=== PATIENT | male | born 1965 | race Caucasian/White ===

== ENCOUNTER 2024-03-29 08:21 | Inpatient (IN) ==
--- NOTE | 2024-03-29 08:17 | Emergency Department Note ---
Impression & Plan Stroke, Right sided weakness, HTN (hypertension), benign ED Provider Note Name: [id number] Age: 58 Sex: Male Arrives Via: Ambulance Informant: Patient, EMS ED Provider: Gary Campoverde MD Chief Complaint: Right-sided weakness Impression: As per impressions above Medical Decision Makin-year-old gentleman arrives for evaluation of strokelike symptoms. Patient with a history of tobacco use no other past medical history. Symptoms were noted when he woke at 4 AM having had no symptoms at 1 in the morning. On examination he has significant weakness and ataxia of the right arm with some paresthesias of the arm and leg as well. No facial weakness or other concerning findings. He was emergently taken to CT and CT of the head neck angios were obtained. During this neurology was also consulted who evaluated patient via telemedicine. After their evaluation they feel that patient should be given baby aspirin and brought in for further workup. They advised against full load of aspirin/Plavix at this time until MRI was obtained. Throughout patient's stay blood pressure started trending down some having been quite elevated initially. Patient stable throughout. Patient arrives essentially 4 and half hours after waking up. He is not a TNKase candidate. There is no large embolic finding on CTA thus he is not a candidate for attempted intervention. Triage/Nursing Notes reviewed by Me Differential:Stroke, seizure, TIA, electrolyte imbalance, intracranial hemorrhage, mass effect, many other pathologies considered Vital Signs: reviewed and remarkable for hypertension Interventions: Aspirin 81 mg p.o. Labs:ED labs Reviewed by me and remarkable for no significant abnormalities Imaging:CT of the head without contrast as per my informal interpretation reveals questionable old infarct of the right anterior cerebellum. There is no acute intracranial hemorrhage or mass effect appreciated. Radiology feels there is no evidence of acute stroke or other concerning findings. CT of the head and neck with angiography as per radiologist no acute findings. EKG:As per my interpretation. Indication strokelike symptoms. Sinus tachycardia 111 bpm and a QTc of 456. There is no ectopy nor ischemia. There are no previous EKGs for comparison. Cardiac/Tele Monitoring: Cardiac Monitoring: An Order was placed for continuous cardiac monitoring. The monitor shows a rate of 80 with a normal sinus rhythm. Consults:Discussed with telemetry stroke neurologist Dr. Dinh who evaluated the patient and feels further stroke workup indicated but at this time would only give baby aspirin until further determination Discussed with Hospitalist who will bring in for further workup and evaluation Plan: Disposition:Hospitalization. Condition: Good History of Present Illness: 58-year-old gentleman who awoke at 4 AM this morning noting weakness of the right arm and leg. Unable to ambulate due to the right leg weakness. Unable to use his right arm properly. States he can lift it but it does not seem to be working properly. Associated with some mild paresthesias in the right arm and leg. He denies any headache, neck pain, visual changes. He has no difficulty speaking. Denies any falls, trauma, injuries. Notes he went to bed around 1 AM and then woke about 4 AM to go to the bathroom. He was hoping symptoms would resolve and do not improving he called 911. Denies any alcohol or drug use other than he does smoke marijuana regularly. He also smokes cigarettes. His mother had a history of stroke. Patient has no significant past medical history. No interventions by EMS. Patient was reportedly hypertensive for EMS. Past Medical History: Cigarette smoking, marijuana smoking Home Medications: No daily medications Allergies: No known drug allergies Vitals:Blood Pressure: 167/112, Pulse 89, RR 24, T 36.7C, O2 97% on RA Physical Exam: GENERAL: Patient is mildly anxious appearing and in minimal distress. RESPIRATORY: No dyspnea. Clear to auscultation and equal bilaterally. CARDIOVASCULAR: Regular rate and rhythm.No murmur appreciated. GASTROINTESTINAL: Abdomen soft, non-tender, no peritonitis. EXTREMITIES: Normal motion all extremities, no cyanosis, no edema. NEUROLOGIC: Awake alert oriented. Cranial nerves intact. Patient with 5 out of 5 strength and full sensation of left arm left leg. He has 4-5 strength right arm and right leg. He is ataxic with the right hand. He has decreased perceived sensation of the right arm and somewhat on the right anterior thigh. No visual issue appreciated. SKIN: No rash, no jaundice, no diaphoresis. PSYCH: Appropriate GCS: 15 ED Course: Times/Reassessments: 8:[address] scanner. 8:[address] scan of head no large bleed question infarct anterior right cerebellum 8:29 AM requested Ruthann neurostroke discussion. 8:34 AM. [facility] neuro responded via phone. Discussed findings and patient is outside the TNKase window however they will evaluate given degree of deficits and rapid assess for further intervention. 8:36 AM. Patient reevaluated. Continues to have weakness ataxia of the right arm and leg. Denies other symptoms at this time. Blood pressure is 200/120. Patient is unlikely TNKase candidate thus will not proceed with antihypertensives immediately. 8:45 AM. Blood pressure 162/108 8:51 AM Stroke neurologist has evaluated the patient. Suggest giving a baby aspirin at this time and awaiting further workup prior to further loading 8:[address] reads are available and do not show any intracranial hemorrhage or occlusive disease per radiologist Gary Campoverde MD Past Med/Surg History Problem List (Updated 03/29/24 @ 15:28 by Gary Campoverde MD) Stroke (Acute) COPD (chronic obstructive pulmonary disease) HTN (hypertension), benign (Acute) Tobacco abuse Right sided weakness (Acute) Family History Mother Stroke Social History Smoking Status: Current every day smoker Feels Safe at Home: Yes Allergies Allergies Allergy/AdvReac Type Severity Reaction Status Date / Time strawberry Allergy Severe Hives Unverified 03/29/24 09:54 Home Meds Home Medications Medication Instructions Recorded Confirmed No Known Home Medications 03/29/24 03/29/24 Results & Data (ED) Vital Signs Vital Signs - 24 hr 03/29/24 08:35 03/29/24 08:45 03/29/24 09:04 Temperature 36.7 C Temperature Source Temporal Artery Scan Pulse Rate 114 H 102 H 102 H Pulse Rate [Apical] Respiratory Rate 16 20 Respiratory Effort / Characteristics Non-Labored Spontaneous Respiratory Depth Normal Blood Pressure 204/126 H 162/108 H Blood Pressure [Right Arm] Blood Pressure Mean 152 126 Blood Pressure Mean [Right Arm] Pulse Oximetry 95 96 Oxygen Delivery Method Room Air Room Air Sepsis Recent Fever Within 48 Hours No Sepsis New/Unexplained Change in Mental Status N/A Sepsis Action Taken by Nursing No Action Required 03/29/24 09:15 Temperature Temperature Source Pulse Rate Pulse Rate [Apical] 87 Respiratory Rate 18 Respiratory Effort / Characteristics Non-Labored Respiratory Depth Normal Blood Pressure Blood Pressure [Right Arm] 153/99 H Blood Pressure Mean Blood Pressure Mean [Right Arm] 117 Pulse Oximetry 97 Oxygen Delivery Method Room Air Sepsis Recent Fever Within 48 Hours Sepsis New/Unexplained Change in Mental Status Sepsis Action Taken by Nursing Laboratory Data 03/29/24 08:27 03/29/24 08:27 Lab Results 03/29/24 03/29/24 Range/Units 08:27 08:40 WBC 10.64 (4.8-10.8) K/ul RBC 5.83 (4.70-6.10) M/uL Hgb 17.5 (14.0-18.0) g/dl Hct 51.1 (42.0-52.0) % MCV 87.7 (80.0-100.0) fL MCH 30.0 (25.0-34.0) pg MCHC 34.2 (32.0-36.0) g/dL RDW Std Deviation 46.4 H (36.4-46.3) fL RDW Coeff of Court 14.5 (11.5-14.5) % Plt Count 303 (130-400) K/uL MPV 8.6 L (9.4-12.4) fL Immature Gran % (Auto) 0.5 % Neut % (Auto) 73.5 % Lymph % (Auto) 18.0 % Howard % (Auto) 6.6 % Eos % (Auto) 0.8 % Baso % (Auto) 0.6 % Neut # (Auto) 7.83 H (1.40-6.50) K/uL Lymph # (Auto) 1.91 (1.20-3.40) K/uL Howard # (Auto) 0.70 H (0.11-0.59) K/uL Eos # (Auto) 0.09 (0.00-0.50) K/uL Baso # (Auto) 0.06 (0.00-0.20) K/uL Immature Gran # (Auto) 0.05 (0.01-0.20) K/uL PT 10.3 (9.0-12.0) Seconds INR 0.9 (0.9-1.1) APTT 27 (21-31) Seconds PTT Ratio 1.0 Sodium 138 (136-145) mmol/L Potassium 3.8 (3.5-5.1) mmol/L Chloride 104 (98-107) mmol/L Carbon Dioxide 26 (21-32) mmol/L Anion Gap 8 (3-11) BUN 7 (6-23) mg/dl Creatinine 0.94 (0.6-1.4) mg/dl Est Cr Clr Drug Dosing 77.3 ml/min eGFR 93.97 BUN/Creatinine Ratio 7.4 L (10-20) Glucose 130 H (70-99(Fasting)) mg/dl Calcium 9.7 (8.6-10.3) mg/dl Magnesium 2.0 (1.7-2.4) mg/dl Total Bilirubin 0.5 (0.2-1.0) mg/dl AST 14 (13-39) U/L ALT 12 (7-52) U/L Alkaline Phosphatase 67 (34-104) U/L Troponin I High Sens 4.1 (0-20) pg/ml Total Protein 7.7 (6.0-8.3) gm/dl Albumin 4.6 (3.4-5.0) gm/dl Globulin 3.1 (2.5-4.0) gm/dl Albumin/Globulin Ratio 1.5 (0.9-2) Blood Type A Positive Antibody Screen NEGATIVE Administered Medications Enoxaparin Sodium (Enoxaparin Inj 40 Mg/0.4 Ml Syr) 40 mg SQ Q24H [facility] Stop: 04/28/24 13:59 Last Admin: 03/29/24 14:25 Dose: 40 mg Documented By: WAGNER Discontinued Medications Aspirin (Aspirin 81 Mg Chew) 81 mg PO NOW STA Stop: 03/29/24 08:57 Last Admin: 03/29/24 09:05 Dose: 81 mg Documented By: LONA Ioversol (Optiray 320 125ml) 112 ml IV ONCE ONE Stop: 03/29/24 08:27 Last Admin: 03/29/24 08:27 Dose: 112 ml Documented By: CASTILLO Imaging Data Radiologist's Impression: Head CT 03/29/24 08:16 CT angio neck with con, CT angio head w con, CT head/brain wo con CLINICAL HISTORY: neuro deficit, acute stroke suspected TECHNIQUE: Contiguous axial CT images of the head were acquired from the base of the skull to the vertex without intravenous contrast administration. CT angiography of the head and neck was performed following intravenous administration of iodinated contrast. Coronal and sagittal MIPS were obtained from the axial data set and were submitted for review. Automated dose lowering techniques and/or adjustment according to patient size were utilized for this examination. All measurements were calculated based on NASCET criteria. CT DOSE: 1120.47 mGy.cm Comparison: None available at the time of this dictation. FINDINGS: CT head: There is no acute intracranial hemorrhage or evidence of acute territorial infarction. No shift of the midline structures, mass effect, or extra-axial abnormalities are shown. Biapical emphysema is seen. Prominent right thyroid nodule measuring 36 mm is noted. CTA Neck: A 3 vessel aortic arch is shown. There is no significant atherosclerotic plaque in the aortic arch or the origins of the innominate, left common carotid, and left subclavian arteries. The common carotid, external carotid, cervical segments of the internal carotid arteries, and the cervical segments of the vertebral arteries are patent without hemodynamically significant stenosis. The left vertebral artery is dominant. CTA Head: The anterior and posterior cerebral circulations are patent. No hemodynamically significant stenosis, aneurysm, dissection, or arteriovenous malformation is shown. IMPRESSION: 1. No acute intracranial hemorrhage, evidence of acute territorial infarction, or other acute intracranial disease process. 2. No occlusion, hemodynamically significant stenosis, or dissection in the major cervical arteries. 3. No occlusion, hemodynamically significant stenosis, aneurysm, dissection, or arteriovenous malformation in the major intracranial arteries. Assessment of stenosis of the internal carotid arteries is based on NASCET criteria. ACT 112: Negative or not required by law. Electronically signed by: Enzo Bird M.D. 03/29/2024 8:51 AM Head CTA 03/29/24 08:16 CT angio neck with con, CT angio head w con, CT head/brain wo con CLINICAL HISTORY: neuro deficit, acute stroke suspected TECHNIQUE: Contiguous axial CT images of the head were acquired from the base of the skull to the vertex without intravenous contrast administration. CT angiography of the head and neck was performed following intravenous administration of iodinated contrast. Coronal and sagittal MIPS were obtained from the axial data set and were submitted for review. Automated dose lowering techniques and/or adjustment according to patient size were utilized for this examination. All measurements were calculated based on NASCET criteria. CT DOSE: 1120.47 mGy.cm Comparison: None available at the time of this dictation. FINDINGS: CT head: There is no acute intracranial hemorrhage or evidence of acute territorial infarction. No shift of the midline structures, mass effect, or extra-axial abnormalities are shown. Biapical emphysema is seen. Prominent right thyroid nodule measuring 36 mm is noted. CTA Neck: A 3 vessel aortic arch is shown. There is no significant atherosclerotic plaque in the aortic arch or the origins of the innominate, left common carotid, and left subclavian arteries. The common carotid, external carotid, cervical segments of the internal carotid arteries, and the cervical segments of the vertebral arteries are patent without hemodynamically significant stenosis. The left vertebral artery is dominant. CTA Head: The anterior and posterior cerebral circulations are patent. No hemodynamically significant stenosis, aneurysm, dissection, or arteriovenous malformation is shown. IMPRESSION: 1. No acute intracranial hemorrhage, evidence of acute territorial infarction, or other acute intracranial disease process. 2. No occlusion, hemodynamically significant stenosis, or dissection in the major cervical arteries. 3. No occlusion, hemodynamically significant stenosis, aneurysm, dissection, or arteriovenous malformation in the major intracranial arteries. Assessment of stenosis of the internal carotid arteries is based on NASCET criteria. ACT 112: Negative or not required by law. Electronically signed by: Enzo Bird M.D. 03/29/2024 8:51 AM Neck CTA 03/29/24 08:16 CT angio neck with con, CT angio head w con, CT head/brain wo con CLINICAL HISTORY: neuro deficit, acute stroke suspected TECHNIQUE: Contiguous axial CT images of the head were acquired from the base of the skull to the vertex without intravenous contrast administration. CT angiography of the head and neck was performed following intravenous administration of iodinated contrast. Coronal and sagittal MIPS were obtained from the axial data set and were submitted for review. Automated dose lowering techniques and/or adjustment according to patient size were utilized for this examination. All measurements were calculated based on NASCET criteria. CT DOSE: 1120.47 mGy.cm Comparison: None available at the time of this dictation. FINDINGS: CT head: There is no acute intracranial hemorrhage or evidence of acute territorial infarction. No shift of the midline structures, mass effect, or extra-axial abnormalities are shown. Biapical emphysema is seen. Prominent right thyroid nodule measuring 36 mm is noted. CTA Neck: A 3 vessel aortic arch is shown. There is no significant atherosclerotic plaque in the aortic arch or the origins of the innominate, left common carotid, and left subclavian arteries. The common carotid, external carotid, cervical segments of the internal carotid arteries, and the cervical segments of the vertebral arteries are patent without hemodynamically significant stenosis. The left vertebral artery is dominant. CTA Head: The anterior and posterior cerebral circulations are patent. No hemodynamically significant stenosis, aneurysm, dissection, or arteriovenous malformation is shown. IMPRESSION: 1. No acute intracranial hemorrhage, evidence of acute territorial infarction, or other acute intracranial disease process. 2. No occlusion, hemodynamically significant stenosis, or dissection in the major cervical arteries. 3. No occlusion, hemodynamically significant stenosis, aneurysm, dissection, or arteriovenous malformation in the major intracranial arteries. Assessment of stenosis of the internal carotid arteries is based on NASCET criteria. ACT 112: Negative or not required by law. Electronically signed by: Enzo Bird M.D. 03/29/2024 8:51 AM Discharge Plan Visit Data Chief Complaint: Stroke Alert ED Provider: Gary Campoverde Discharge Problem: Stroke, Right sided weakness, HTN (hypertension), benign Discharge Instructions Interventions: ED Discharge Assessment Last Done: 03/29/24 12:49 Discharge Problem: Stroke Qualifiers: CVA mechanism: unspecified Qualified Code(s): I63.9 - Cerebral infarction, unspecified
[2024-03-29] MEDS: OPTIRAY 320 125ml IV ONE (08:27)
[2024-03-29 08:41] LABS: Basophils # (auto) 0.06 K/uL (0.00-0.20); Basophils % (auto) 0.6 %; Eosinophils # (auto) 0.09 K/uL (0.00-0.50); Eosinophils % (auto) 0.8 %; Hematocrit (blood only) 51.1 % (42.0-52.0); Hemoglobin 17.5 g/dl (14.0-18.0); Immature Granulocytes # (auto) 0.05 K/uL (0.01-0.20); Immature Granulocytes % (auto) 0.5 %; Lymphocytes # (auto) 1.91 K/uL (1.20-3.40); Mean Corpuscular Hgb Conc 34.2 g/dL (32.0-36.0); Mean Corpuscular Volume 87.7 fL (80.0-100.0); Mean Platelet Volume 8.6 fL (9.4-12.4); Monocytes % (auto) 6.6 %; Neutrophils # (auto) 7.83 K/uL (1.40-6.50); Neutrophils % (auto) 73.5 %; Platelet Count 303 K/uL (130-400); RDW Coefficient of Variation 14.5 % (11.5-14.5); RDW Standard Deviation 46.4 fL (36.4-46.3); Red Blood Count 5.83 M/uL (4.70-6.10); White Blood Count 10.64 K/ul (4.8-10.8)
--- NOTE | 2024-03-29 08:53 | CT Scan Report ---
CT angio neck with con, CT angio head w con, CT head/brain wo con CLINICAL HISTORY: neuro deficit, acute stroke suspected TECHNIQUE: Contiguous axial CT images of the head were acquired from the base of the skull to the nikky shashank without intravenous contrast administration. CT angiography of the head and neck was performed f ollowing intravenous administration of iodinated contrast. Coronal and sagittal MIPS were obtained fr om the axial data set and were submitted for review. Automated dose lowering techniques and/or adjus tment according to patient size were utilized for this examination. All measurements were calculated based on NASCET criteria. CT DOSE: 1120.47 mGy.cm Comparison: None available at the time of this dictation. FINDINGS: CT head: There is no acute intracranial hemorrhage or evidence of acute territorial infarction. No sh ift of the midline structures, mass effect, or extra-axial abnormalities are shown. Biapical emphysema is seen. Prominent right thyroid nodule measuring 36 mm is noted. CTA Neck: A 3 vessel aortic arch is shown. There is no significant atherosclerotic plaque in the aor tic arch or the origins of the innominate, left common carotid, and left subclavian arteries. The co mmon carotid, external carotid, cervical segments of the internal carotid arteries, and the cervical segments of the vertebral arteries are patent without hemodynamically significant stenosis. The left vertebral artery is dominant. CTA Head: The anterior and posterior cerebral circulations are patent. No hemodynamically significan t stenosis, aneurysm, dissection, or arteriovenous malformation is shown. IMPRESSION: 1. No acute intracranial hemorrhage, evidence of acute territorial infarction, or other acute intrac ranial disease process. 2. No occlusion, hemodynamically significant stenosis, or dissection in the major cervical arteries. 3. No occlusion, hemodynamically significant stenosis, aneurysm, dissection, or arteriovenous malfor mation in the major intracranial arteries. Assessment of stenosis of the internal carotid arteries is based on NASCET criteria. ACT 112: Negative or not required by law. Electronically signed by: Enzo Bird M.D. 03/29/2024 8:51 AM
[2024-03-29 08:57] LABS: Albumin Globulin Ratio 1.5 (0.9-2); Albumin Level 4.6 gm/dl (3.4-5.0); BUN Creatinine Ratio 7.4 (10-20); Bilirubin,Total 0.5 mg/dl (0.2-1.0); Calcium 9.7 mg/dl (8.6-10.3); Creatinine Clr Calc Pharmacy 77.3 ml/min; Globulin 3.1 gm/dl (2.5-4.0); Potassium 3.8 mmol/L (3.5-5.1); Total Protein 7.7 gm/dl (6.0-8.3)
[2024-03-29 09:03] LABS: Troponin I High Sensitivity 4.1 pg/ml (0-20)
[2024-03-29] MEDS: ASPIRIN 81 MG CHEW PO STA (09:05)
[2024-03-29 09:14] LABS: INR 0.9 (0.9-1.1); Partial Thromboplastin Time 27 Seconds (21-31); Prothrombin Time 10.3 Seconds (9.0-12.0)
--- NOTE | 2024-03-29 09:49 | History & Physical Report ---
Date of Service March 29, 2024 Assessment & Plan (1) Right sided weakness: (2) Tobacco abuse: (3) COPD (chronic obstructive pulmonary disease): (4) HTN (hypertension), benign: Plan 58-year-old male with PMHx HTN and tobacco use presenting to ED via EMS for right arm/hand and right leg sensation abnormalities. Noted that he started to experience weakness along the right side and has difficulty walking at 0400. CT, CTA head/neck WNL, EKG sinus tachycardia no ischemia. Patient continues to have sensation abnormalities along the right side with associated weakness on exam. Will complete workup to rule out CVA. #R-sided weakness Presenting w/ right sided upper and lower extremity weakness, with sensation abnormalities, last known well 0100, awoke with symptoms at 0400; current symptoms of ongoing right sided upper and lower extremity numbness with weakness, but patient feels as though it was resolving some. Did receive 81 mg aspirin in ED, no thrombolytics 2/2 outside of time-frame for such. Known history of HTN, not on medications because of side effects, per patient. Son reports history of MVP. - Admit med/tele - Telestroke recommending single dose of aspirin 81 mg and admission; ABCD2 5- BP, weakness, >60 min - Dysphagia screen x 1 - NPO until passed then heart healthy - CT head without acute hemorrhage or additional findings; CTA head/neck without acute findings or significant stenosis - 2D Echo Bubble pending; A1c pending; Lipids pending - Troponin 4.1; EKG sinus tachycardia, nonspecific T wave abnormality, rate around 110 bpm; no CP/SOB, some palpitations - Initiate DVT prevention therapy - lovenox; Start statin pending lipid results - Atorvastatin 40mg - ASA 81 mg given in ED- continue 81mg daily - MRI pending #Tobacco abuse/COPD Smokes cigarettes, approximately 1 pack/day times last 30 years. Previously was on Spiriva but has not seen a doctor in years and ran out. - Encouraged cessation - Nicotine patch and gum ordered -Order albuterol rescue inhaler as needed and recommend follow-up with PCP as an outpatient #HTN- initially hypertensive on arrival to ED, decreased. Not on medications to manage secondary to side effects, per patient. Will allow permissive hypertension; pending MRI results; Labetalol prn for SBP > 200 #MVP- ? h/o MVP, reported per son. Patient not symptomatic, will have occasional palpitations but not currently. Pending echo Message sent to nurse navigator to have patient set up with new PCP. Dispo: Admit to med/tele with likely discharge next day, pending workup + PT/OT eval VTE Prophylaxis: Lovenox This document was dictated utilizing [employer]. Please excuse any grammatical errors that may be secondary to use of this software. Admission and Anticipated Discharge Date Admission Date: 03/29/2024 History of Present Illness Chief Complaint: R sided weakness Primary Care Provider: NO PCP 58-year-old male with PMHx HTN and tobacco use presenting to ED via EMS for right arm/hand and right leg sensation abnormalities. Also noted that he sta rted to experience weakness along the right side and has difficulty walking. Initially went to bed feeling normal at 0100, patient then awoke again around 0400 to use the restroom and initially noticed that his right side arm and leg felt like they were asleep. Went back to sleep and a few minutes then awoke again and tried to go to the bathroom but felt that it was much more difficult to walk and he felt that the numbness/tingling/weakness was getting worse on the right side. Pt states that he woke his in bed because he was stumbling trying to get to the bathroom. Son, who is an EMT, reports that he did have slurred speech, but no other noticeable symptoms other than those patient describing. No history of TIA/CVA. Smokes around 1 pack/day for the past 30 years. Feels as though symptoms have improved slightly since being brought to the hospital, but he is still feeling numbness/tingling in his right arm and leg. CT head, CTA head/neck all revealing no acute abnormalities. EKG is sinus tachycardia, no signs of ischemia. Patient does not take any daily medications and has not seen his PCP in multiple years. Please see Dr. Roa's attestation for adjustments/additions to treatment plan. Allergies Allergy/AdvReac Type Severity Reaction Status Date / Time strawberry Allergy Severe Hives Unverified 03/29/24 09:54 Home Medications Medication Instructions Recorded Confirmed Type No Known Home Medications 03/29/24 03/29/24 History Past Med/Surg History Problem List (Updated 03/29/24 @ 11:55 by Leatha Roa MD) COPD (chronic obstructive pulmonary disease) HTN (hypertension), benign Tobacco abuse Right sided weakness Family History Mother Stroke Social History Smoking Status: Current every day smoker Feels Safe at Home: Yes Review of Systems Review of Systems: All systems reviewed & are unremarkable except as noted in Subjective Physical Exam Physical Exam: General: No acute distress Skin: Warm and dry, without rashes or lesions Head: Normocephalic, atraumatic Eyes: PERRL, conjunctivae clear, sclera slightly icteric; EOM intact ENT: External ear and ear canal without swelling; nose atraumatic; OK dentition, tongue normal appearance, oropharynx slightly dry Neck: Supple, no LAD Cardio: RRR,? systolic mumur, no additional murmurs/gallops/rubs; S1 and S2 n ormal Resp: No respiratory distress, Lungs CTA in all lobes bilaterally, no wheezes, rales, or rhonchi Abdomen: Soft, symmetric, nontender; No masses or hepatosplenomegaly; Bowel sounds normoactive MSK: No deformities, full ROM throughout; pulses palpable and equal; no edema. Neuro: II- PERRL, no VF deficits III, IV, - EOMs intact, no deviation, no nystagmus V- Sensation felt throughout, slightly diminished R side vs L VII- No asymmetry, no nasolabial fold flattening VIII- Normal hearing to speech IX, X- Normal palatal elevation, no ulnar deviation XI- 5/5 head turn + shoulder shrug bilaterally XII- Midline tongue protrusion Motor: 5/5 strength LUE/LLE; 4/5 strength w/ RUE/RLL; no pronator drift Reflexes: WNL throughout Sensory: Sensation slightly diminished along right side, WNL on left, Romberg absent Coordination: No tremor, normal [place] Gait: Unable to asses Psych: Appropriate mood and affect; good judgement and insight. Son is present in room at time of visit. Results & Data Results & Data Vital Signs (Past 12 Hours) Vital Signs Temp Pulse Pulse Resp BP BP Pulse Ox 03/29/24 09:15 87 18 153/99 H 97 12/28/24 09:04 102 H 03/29/24 08:45 102 H 20 162/108 H 96 03/29/24 08:35 36.7 C 114 H 16 204/126 H 95 O2 Del Method 03/29/24 09:15 Room Air 03/29/24 09:04 03/29/24 08:45 Room Air 03/29/24 08:35 Room Air Laboratory Results 03/29/24 08:27 WBC 10.64 RBC 5.83 Hgb 17.5 Hct 51.1 MCV 87.7 MCH 30.0 MCHC 34.2 RDW Std Deviation 46.[address] of [address] 14.5 Plt Count 303 MPV 8.6 L Immature Gran % (Auto) 0.5 Neut % (Auto) 73.5 Lymph % (Auto) 18.0 Duc[place]ne % (Auto) 6.6 Eos % (Auto) 0.8 Baso % (Auto) 0.6 Neut # (Auto) 7.83 H Lymph # (Auto) 1.91 [place] # (Auto) 0.70 H Eos # (Auto) 0.09 Baso # (Auto) 0.06 Immature Gran # (Auto) 0.05 PT 10.3 INR 0.9 APTT 27 PTT Ratio 1.0 Sodium 138 Potassium 3.8 Chloride 104 Carbon Dioxide 26 Anion Gap 8 BUN 7 Creatinine 0.94 Est Cr Clr Drug Dosing 77.3 eGFR 93.97 BUN/Creatinine Ratio 7.4 L Glucose 130 H Calcium 9.7 Magnesium 2.0 Total Bilirubin 0.5 AST 14 ALT 12 Alkaline Phosphatase 67 Troponin I High Sens 4.1 Total Protein 7.7 Albumin 4.6 Globulin 3.1 Albumin/Globulin Ratio 1.[address] 03/29/24 08:16 CT angio neck with con, CT angio head w con, CT head/brain wo con CLINICAL HISTORY: neuro deficit, acute stroke suspected TECHNIQUE: Contiguous axial CT images of the head were acquired from the base of the skull to the vertex without intravenous contrast administration. CT angiography of the head and neck was performed following intravenous administration of iodinated contrast. Coronal and sagittal MIPS were obtained from the axial data set and were submitted for review. Automated dose lowering techniques and/or adjustment according to patient size were utilized for this examination. All measurements were calculated based on NASCET criteria. CT DOSE: 1120.47 mGy.cm Comparison: None available at the time of this dictation. FINDINGS: CT head: There is no acute intracranial hemorrhage or evidence of acute territorial infarction. No shift of the midline structures, mass effect, or extr a-axial abnormalities are shown. Biapical emphysema is seen. Prominent right thyroid nodule measuring 36 mm is noted. CTA Neck: A 3 vessel aortic arch is shown. There is no significant atheroscle rotic plaque in the aortic arch or the origins of the innominate, left common carotid, and left subclavian arteries. The common carotid, external carotid, cervical segments of the internal carotid arteries, and the cervical segments of the vertebral arteries are patent without hemodynamically significant stenosis. The left vertebral artery is dominant. CTA Head: The anterior and posterior cerebral circulations are patent. No hemodynamically significant stenosis, aneurysm, dissection, or arteriovenous malformation is shown. IMPRESSION: 1. No acute intracranial hemorrhage, evidence of acute territorial infarction, or other acute intracranial disease process. 2. No occlusion, hemodynamically significant stenosis, or dissection in the major cervical arteries. 3. No occlusion, hemodynamically significant stenosis, aneurysm, dissection, or arteriovenous malformation in the major intracranial arteries. Assessment of stenosis of the internal carotid arteries is based on NASCET cri teria. ACT 112: Negative or not required by law. Electronically signed by: Enzo Bird M.D. 03/29/2024 8:51 AM Head CTA 03/29/24 08:16 CT angio neck with con, CT angio head w con, CT head/brain wo con CLINICAL HISTORY: neuro deficit, acute stroke suspected TECHNIQUE: Contiguous axial CT images of the head were acquired from the base of the skull to the vertex without intravenous contrast administration. CT angiography of the head and neck was performed following intravenous administration of iodinated contrast. Coronal and sagittal MIPS were obtained from the axial data set and were submitted for review. Automated dose lowering techniques and/or adjustment according to patient size were utilized for this examination. All measurements were calculated based on NASCET criteria. CT DOSE: 1120.47 mGy.cm Comparison: None available at the time of this dictation. FINDINGS: CT head: There is no acute intracranial hemorrhage or evidence of acute territorial infarction. No shift of the midline structures, mass effect, or extra-axial abnormalities are shown. Biapical emphysema is seen. Prominent right thyroid nodule measuring 36 mm is noted. CTA Neck: A 3 vessel aortic arch is shown. There is no significant atherosclerotic plaque in the aortic arch or the origins of the innominate, left common carotid, and left subclavian arteries. The common carotid, external carotid, cervical segments of the internal carotid arteries, and the cervical segments of the vertebral arteries are patent without hemodynamically significant stenosis. The left vertebral artery is dominant. CTA Head: The anterior and posterior cerebral circulations are patent. No hemodynamically significant stenosis, aneurysm, dissection, or arteriovenous m alformation is shown. IMPRESSION: 1. No acute intracranial hemorrhage, evidence of acute territorial infarction, or other acute intracranial disease process. 2. No occlusion, hemodynamically significant stenosis, or dissection in the major cervical arteries. 3. No occlusion, hemodynamically significant stenosis, aneurysm, dissection, or arteriovenous malformation in the major intracranial arteries. Assessment of stenosis of the internal carotid arteries is based on NASCET criteria. ACT 112: Negative or not required by law. Electronically signed by: Enzo Bird M.D. 03/29/2024 8:51 AM Neck CTA 03/29/24 08:16 CT angio neck with con, CT angio head w con, CT head/brain wo con CLINICAL HISTORY: neuro deficit, acute stroke suspected TECHNIQUE: Contiguous axial CT images of the head were acquired from the base of the skull to the vertex without intravenous contrast administration. CT angiography of the head and neck was performed following intravenous administration of iodinated contrast. Coronal and sagittal MIPS were obtained from the axial data set and were submitted for review. Automated dose lowering techniques and/or adjustment according to patient size were utilized for this examination. All measurements were calculated based on NASCET criteria. CT DOSE: 1120.47 mGy.cm Comparison: None available at the time of this dictation. FINDINGS: CT head: There is no acute intracranial hemorrhage or evidence of acute territorial infarction. No shift of the midline structures, mass effect, or extra-axial abnormalities are shown. Biapical emphysema is seen. Prominent right thyroid nodule measuring 36 mm is noted. CTA Neck: A 3 vessel aortic arch is shown. There is no significant atherosclerotic plaque in the aortic arch or the origins of the innominate, left common carotid, and left subclavian arteries. The common carotid, external carotid, cervical segments of the internal carotid arteries, and the cervical segments of the vertebral arteries are patent without hemodynamically significant stenosis. The left vertebral artery is dominant. CTA Head: The anterior and posterior cerebral circulations are patent. No hemodynamically significant stenosis, aneurysm, dissection, or arteriovenous malformation is shown. IMPRESSION: 1. No acute intracranial hemorrhage, evidence of acute territorial infarction, or other acute intracranial disease process. 2. No occlusion, hemodynamically significant stenosis, or dissection in the major cervical arteries. 3. No occlusion, hemodynamically significant stenosis, aneurysm, dissection, or arteriovenous malformation in the major intracranial arteries. Assessment of stenosis of the internal carotid arteries is based on NASCET criteria. ACT 112: Negative or not required by law. Electronically signed by: Enzo Bird M.D. 03/29/2024 8:51 AM Medications Administered ASA 81 mg ECG Additional Comments: Sinus tachycardia, nonspecific T wave abnormality Ventricular rate 111, AR 180, QRS 72, QT/QTc 336/456, PRT axis 72/59/65 Code Status & VTE Plan Code Status Full VTE Prophylaxis Plan VTE Prophylaxis will be ordered: Yes Supervising Physician Co-Signing Physician Notes PA Supervision Note: I personally saw and examined the patient. I verified all oliveira points and agree with CLIFTON Wing with the following exceptions and/or additions: S-this patient is a 58-year-old male with a history of current pack-a-day smoker, COPD, and HTN untreated who has not seen a doctor in many years who presented to the ER with right-sided weakness and numbness that he noticed when he woke up at 4 AM this morning. He was unable to walk and feels his right arm and right leg are clumsy and tingling/numb. His family did report that he had some slurred speech as well but that seems to be improving. Denies chest pains or palpitations, no shortness of breath, no headache. He does occasionally feel a racing heartbeat and attributes this to his mitral valve prolapse he was told he had years ago. He denies visual symptoms or blindness. O- Vitals reviewed Gen: AAOx3, NAD HEENT: Anicteric sclerae, EOMI, PERRLA CV: RRR no mgr nl S1S2 Pulm: CTAB, diminished throughout, no wcr Ext: No edema Skin: No rashes, warm/dry Neuro: Cranial nerves II through XII intact except diminished sensation to light touch throughout V1 V2 V3 on the right, 4/5 strength throughout RUE and RLE, most pronounced distally and wrist extension and with right foot drop, DTRs 2+ in upper and lower extremities throughout, sensation diminished to light touch of RUE and RLE throughout, no slurred speech or facial droop, gait not tested due to weakness CBC, CMP, troponin reviewed CT angiogram head and neck, CT head reviewed ECG with sinus tachycardia, no ischemic changes A/Q-45-blmr-old male with a history of untreated HTN, current smoker/COPD, here with right-sided weakness, suspect acute ischemic CVA Check brain MRI, echo with bubble study With mild hyperglycemia-check hemoglobin A1c Permissive hypertension for now but then likely will need antihypertensive on discharge Check lipid panel but if has stroke, needs high intensity statin Continue aspirin started in the ER and if has stroke, may need dual antiplatelet therapy x 3 weeks PG Care Time/CCT Total # of Minutes Spent Total Time Spent with Patient: Total time spent is greater than 50% in coordination of care (as documented) at patient's floor/unit and/or counseling patient: Coding Level of Care Code 82627 INT INP/OBS CARE 3/75MIN Diagnoses Right sided weakness R53.1 Tobacco abuse Z72.0 COPD (chronic obstructive pulmonary disease) J44.9 HTN (hypertension), benign I10
[2024-03-29] MEDS ORDERED: ALBUTEROL HFA 8 GM INHALER INH PRN (11:49)
--- NOTE | 2024-03-29 12:46 | Magnetic Resonance Report ---
MR brain wo con CLINICAL HISTORY: R sided weakness TECHNIQUE: Multiplanar and multisequence MR images of the brain were obtained without intravenous con trast. Comparison: Comparison is made to CTA head and neck 03/29/2024 FINDINGS: Punctate foci of restricted diffusion are seen in the left periventricular white matter and right bas al ganglia. Foci of T2 and FLAIR hyperintensity are noted in the paraventricular areas consistent wit h chronic small vessel ischemic disease. The ventricular system is normal in appearance. No mass is s een. There is no mass effect or midline shift. There is no evidence of acute intraparenchymal hemorrh age. No extra axial fluid collections are seen. The corpus callosum, pituitary gland, and cerebellar tonsils appear grossly unremarkable. Flow voids of the major intracranial arterial vessels are identified. The imaged portions of the para nasal sinuses, mastoid air cells, and orbits are unremarkable. IMPRESSION: Findings compatible with small bilateral infarcts, possibly embolic. ACT 112: Negative or not required by law. Electronically signed by: Enzo Bird M.D. 03/29/2024 12:43 PM
[2024-03-29] MEDS ORDERED: MELATONIN 3 MG TAB PO PRN (12:49)
[2024-03-29] MEDS ORDERED: LABETALOL HCL IV 5 MG/ML 20ML IV PRN (12:49)
[2024-03-29] MEDS ORDERED: POLYETHYLENE (MIRALAX) 17 GM PACK PO PRN (12:49)
[2024-03-29] MEDS ORDERED: MAGNESIUM HYDROXIDE SUSP 30 ML UDC PO PRN (12:49)
[2024-03-29] MEDS ORDERED: PHARMACIST DISCHARGE MED REC CONSULT PRN (12:49)
--- OUTSIDE RECORDS SUMMARY | 2024-03-29 12:53 | External Medical Summary | Summary of Care ---
Author Name Unknown Organization [facility] Address [address] [place] [address] Phone [phone] Care Team Providers Care Reel System Operator Name Role Phone Yesenia Barney Primary Care Provider [phone] Encounter Details Date Type Department Care Team (Late st Contact Info) Description 02/26/2024 Population Health External Data Unspecified Department Allergies Active Allergy Reactions Criticality Noted Date Comments [place] Extract Hives 10/12/2014 documented as of this encounter (statuses as of 02/26/2024) Medications ASPIRIN EC 81 MG PO TBECIndications:C hest pain 1 TABLET DAILY 30 Tab 11 2 Active OMEPRAZOLE 20 MG PO CPDRIndications:E sophageal reflux One pill by mouth once a day 1 hour before the first meal of the day 30 Cap 5 4 Active benzonatate (TESSALON PERLES) 100 MG CapsuleIndication s:COPD exacerbation (HCC) Swallow 1 or 2 pills three times a day as needed for cough. Do not cut, crush, or chew. 50 Cap 1 6 Active loratadine (CLARITIN) 10 MG TabletIndications :Allergic rhinitis, unspecified allergic rhinitis type Take 1 Tab by mouth daily. 30 Tab 5 6 Active levalbuterol (XOPENEX HFA) 45 MCG/ACT inhaler Inhale 2 Puffs by mouth every 4 hours as needed for Wheezing or Shortness of Breath. 1 Inhaler 12 6 Active tiotropium bromide (SPIRIVA HANDIHALER) 18 MCG inhalation CapsuleIndication s:COPD, mild (HCC) INHALE THE CONTENTS OF 1 CAPSULE ONCE A DAY. FOR INHALATION ONLY, DO NOT SWALLOW. 30 Cap 5 6 Active losartan (COZAAR) 50 MG Tablet Take 1 Tab by mouth daily. 30 Tab 5 6 Active citalopram (CELEXA) 10 MG TabletIndications :Anxiety One pill by mouth once a day 30 Tab 5 6 Active triamcinolone acetonide (ARISTOCORT) 0.1 % creamIndications: Eczema APPLY TO AFFECTED AREA TWICE A DAY 60 g 5 7 Active documented as of this encounter (statuses as of 02/26/2024) Active Problems Problem Noted Date Diagnosed Date Sinus tachycardia 12/31/2012 HTN, goal below 140/90 09/13/2011 Tobacco use disorder 09/13/2011 Allergic rhinitis 06/13/2011 Eczema 03/14/2011 Mitral valve anterior leaflet prolapse COPD, mild Anxiety documented as of this encounter (statuses as of 02/26/2024) Resolved Problems Problem Noted Date Diagnosed Date Resolved Date Shortness of breath 03/20/2012 10/13/19 15 Chest pain 03/20/2012 10/12/2014 HTN, goal below 130/80 09/12 Undiagnosed cardiac murmurs 02/14/2011 documented as of this encounter (statuses as of 02/26/2024) Immunizations Name Administration Dates Next Due Pneumococcal Polysaccharide PPV23 (Pneumovax) 03/14/2012,06/13/2011(Deferred: Patient Refused) Seasonal Influenza Vac., MDV , IM, 0.5 mL (Fluzone) 01/26/2014,12/31/2012,03/14/2012,02/14 Seasonal Influenza, Quadriva lent, No Preserve, IM 01/24/2016,04/19/2015 TDAP, Age 7 and older, IM (Adacel) 08/31/2010 documented as of this encounter Social History Tobacco Use Types Packs/Day Years Used Date Smoking Tobacco: Every Day Cigarettes Smokeless Tobacco: Former Snuff Comments:rare snuff Alcohol Use Standard Drinks/Week Comments No 0 (1 standard drink = 0.6 oz pur e alcohol) Sex and Gender Information Value Date Recorded Sex Assigned at Not on file Legal Sex Male 5:26 AM EST Gender Identity Not on file Sexual Orientation Not on file documented as of this encounter Plan of Treatment Health Maintenance Due Date Last Done Comments DISCUSS TOBACCO CESSATION (REFER TO SMARTSET #[id number]) 1965 HIV Screening 1980 Albumin/Creatinine Ratio 07/18/1983 Alpha-1 Antitrypsin 07/18/1983 Hepatitis C Screening 07/18/1983 O2 ASSESSMENT COMPLETED IN PAST YEAR FOR COPD 07/18/1983 Hepatitis B Vaccine (1 of 3 - 19+ 3-dose series) 1984 Cologuard 2010 Colonoscopy 2010 Colorectal Cancer Screening 2010 Fecal Occult Blood Test 2010 Sigmoidoscopy 2010 Pneumococcal Vaccine: Pediatrics (0 to 5 Years) and At-Risk Patients (6 to 64 Years) (2 of 2 - PCV) 03/14/2013 03/14/2012 Depression Screening 01/26/2015 01/26/2014 Zoster Vaccines (1 of 2) 07/18/2015 GFR 04/19/2016 04/19/2015, 01/01, 10/22/2012, Additional history exists Lipid Panel 01/26/2019 01/26/2014, 10/01, 02/14/2011 DTap/Tdap Vaccines (2 - Td or Tdap) 08/31/2020 08/31/2010 COVID-19 Vaccine ( - season) 2023 Influenza Vaccine (FLU shot) (#1) 2023 01/24/2016, 04/19/2015, 01/26/2014, Additional history exists HPV (Gardasil) Vaccine Aged Out No lo nger eligible based on patient's age to complete this topic MENINGOCOCCAL (MENACTRA/MENVEO) Aged Out No longer eligible based on patient's age to complete this topic documented as of this encounter Medical Devices Not on filedocumented as of this encounter Care Teams Reel System Operator Relationship Specialty Start Date End Date Yesenia Barney DO PCP - General Internal Medicine 05/11/16 documented as of this encounter
[2024-03-29] MEDS: ENOXAPARIN INJ 40 MG/0.4 ML SYR SQ SCH (14:25)
--- NOTE | 2024-03-29 16:42 | Electrocardiogram Report ---
Test Reason : Blood Pressure : */* mmHG Vent. Rate : 111 BPM Atrial Rate : 111 BPM P-R Int : 180 ms QRS Dur : 72 ms QT Int : 336 ms P-R-T Axes : 72 59 65 degrees QTcB Int : 456 ms Sinus tachycardia Nonspecific T wave abnormality Abnormal ECG No previous ECGs available Confirmed by Janee Martel (Lucero) on 03/29/2024 4:42:25 PM Referred By: REFERRED SELF Confirmed By: Janee Martel
[2024-03-29] MEDS: CLOPIDOGREL BISULFATE 300 MG TAB PO STA (16:48)
[2024-03-29] MEDS: NICOTINE POLACRILEX 2 MG GUM MT PRN (16:56)
[2024-03-29] MEDS: ACETAMINOPHEN 325 MG TAB PO PRN (17:45)
[2024-03-29] MEDS: MAGNESIUM OXIDE 400 MG TAB PO SCH (17:46)
[2024-03-29] MEDS: CALCIUM CARBONATE 500 MG CHEWABLE TAB PO SCH (17:49)
[2024-03-30 07:54] VITALS: RESP 16; TEMP 97.5; O2SAT 97
[2024-03-30 08:07] LABS: Basophils # (auto) 0.06 K/uL (0.00-0.20); Basophils % (auto) 0.6 %; Hematocrit (blood only) 50.7 % (42.0-52.0); Hemoglobin 17.7 g/dl (14.0-18.0); Immature Granulocytes # (auto) 0.04 K/uL (0.01-0.20); Immature Granulocytes % (auto) 0.4 %; Lymphocytes # (auto) 1.98 K/uL (1.20-3.40); Lymphocytes % (auto) 20.7 %; Mean Corpuscular Hemoglobin 30.3 pg (25.0-34.0); Mean Corpuscular Hgb Conc 34.9 g/dL (32.0-36.0); Mean Corpuscular Volume 86.7 fL (80.0-100.0); Mean Platelet Volume 8.5 fL (9.4-12.4); Monocytes # (auto) 0.78 K/uL (0.11-0.59); Monocytes % (auto) 8.2 %; Neutrophils # (auto) 6.59 K/uL (1.40-6.50); Neutrophils % (auto) 69.1 %; Platelet Count 304 K/uL (130-400); RDW Coefficient of Variation 14.6 % (11.5-14.5); RDW Standard Deviation 46.3 fL (36.4-46.3); Red Blood Count 5.85 M/uL (4.70-6.10); White Blood Count 9.55 K/ul (4.8-10.8)
[2024-03-30] MEDS: NICOTINE 14 MG/24 HR PATCH TD SCH (08:40)
[2024-03-30] MEDS: ASPIRIN 81 MG ECTAB PO SCH (08:41)
[2024-03-30] MEDS: CLOPIDOGREL BISULFATE 75 MG TAB PO SCH (08:41)
[2024-03-30] MEDS: ATORVASTATIN 40 MG TAB PO SCH (08:41)
[2024-03-30 08:48] LABS: BUN Creatinine Ratio 9.3 (10-20); Calcium 9.5 mg/dl (8.6-10.3); Chol HDL Ratio 4.9 (0-5); Creatinine Clr Calc Pharmacy 74.9 ml/min
[2024-03-30 09:01] LABS: Estimated Average Glucose 91 mg/dl; Hemoglobin A1C 4.8 % (4.5-5.6)
[2024-03-30 11:29] VITALS: BP 167/112; PULSE 89
[2024-03-30] MEDS: INFLUENZA VACC TS2024-25(6m+)/PF (IIV3) 0.5mL Syr IM ONE (11:32)
[2024-03-30] MEDS: STROKE PATIENT DISCHARGE STA (11:33)
--- NOTE | 2024-03-30 11:44 | Discharge Summary ---
Discharge Summary Date of Service March 30, 2024 Principal Dx & Hospital Course #1 = Principal Diagnosis (1) Right sided weakness: (2) Tobacco abuse: (3) COPD (chronic obstructive pulmonary disease): (4) HTN (hypertension), benign: Plan 58-year-old male with PMHx HTN and tobacco use presenting to ED via EMS for right arm/hand and right leg sensation abnormalities. Noted that he started to experience weakness along the right side and has difficulty walking at 0400. CT, CTA head/neck WNL, EKG sinus tachycardia no ischemia. Patient continues to have sensation abnormalities along the right side with associated weakness on exam. Will complete workup to rule out CVA. #R-sided weakness Presenting w/ right sided upper and lower extremity weakness, with sensation abnormalities, last known well 0100, awoke with symptoms at 0400; current symptoms of ongoing right sided upper and lower extremity numbness with weakness, but patient feels as though it was resolving some. Did receive 81 mg aspirin in ED, no thrombolytics 2/2 outside of time-frame for such. Known history of HTN, not on medications because of side effects, per patient. Son reports history of MVP. Diagnosed with acute small bilateral infarcts, possibly embolic on MRI No source. May need a 30n day heart monitor to assess for A. fib Patient willl be discharge on 21 day of DAPT. Then will contiue with plavix. Patient will also be on high dose statin - CT head without acute hemorrhage or additional findings; CTA head/neck without acute findings or significant stenosis #Tobacco abuse/COPD Smokes cigarettes, approximately 1 pack/day times last 30 years. Previously was on Spiriva but has not seen a doctor in years and ran out. - Encouraged cessation - Nicotine patch and gum ordered -Order albuterol rescue inhaler as needed and recommend follow-up with PCP as an outpatient #HTN- initially hypertensive on arrival to ED, decreased. Not on medications to manage secondary to side effects, per patient. Will allow permissive hypertension; pending MRI results; Labetalol prn for SBP > 200 #MVP- ? h/o MVP, reported per son. Patient not symptomatic, will have occasional palpitations but not currently. Pending echo Message sent to nurse navigator to have patient set up with new PCP. Admission HPI Per Admitting Provider 58-year-old male with PMHx HTN and tobacco use presenting to ED via EMS for right arm/hand and right leg sensation abnormalities. Also noted that he started to experience weakness along the right side and has difficulty walking. Initially went to bed feeling normal at 0100, patient then awoke again around 0400 to use the restroom and initially noticed that his right side arm and leg felt like they were asleep. Went back to sleep and a few minutes then awoke again and tried to go to the bathroom but felt that it was much more difficult to walk and he felt that the numbness/tingling/weakness was getting worse on the right side. Pt states that he woke his in bed because he was stumbling trying to get to the bathroom. Son, who is an EMT, reports that he did have slurred speech, but no other noticeable symptoms other than those patient describing. No history of TIA/CVA. Smokes around 1 pack/day for the past 30 years. Feels as though symptoms have improved slightly since being brought to the hospital, but he is still feeling numbness/tingling in his right arm and leg. CT head, CTA head/neck all revealing no acute abnormalities. EKG is sinus tachycardia, no signs of ischemia. Patient does not take any daily medications and has not seen his PCP in multiple years. Please see Dr. Roa's attestation for adjustments/additions to treatment plan. Discharge Exam General: No acute distress Skin: Warm and dry, without rashes or lesions Head: Normocephalic, atraumatic Eyes: PERRL, conjunctivae clear, sclera slightly icteric; EOM intact ENT: External ear and ear canal without swelling; nose atraumatic; OK dentition, tongue normal appearance, oropharynx slightly dry Neck: Supple, no LAD Cardio: RRR,? systolic mumur, no additional murmurs/gallops/rubs; S1 and S2 normal Resp: No respiratory distress, Lungs CTA in all lobes bilaterally, no wheezes, rales, or rhonchi Abdomen: Soft, symmetric, nontender; No masses or hepatosplenomegaly; Bowel sounds normoactive MSK: No deformities, full ROM throughout; pulses palpable and equal; no edema. Discharge Plan Discharge Items Patient Disposition: Home - Home Health Services Reason For Visit: R SIDED WEAKNESS/NUMBNESS Discharge Diagnosis: right sided weakness/ numbness Activity: Resume your previous activity Non-emergency contact: Primary Care Provider Call non-emergency contact if: you have any medication questions Follow-up/Referrals: PCP,NO [Physician] - Diet: Heart Healthy Addtl Attending Provider Instructions: WIll need to set up with Dr. Aguilar for followup. Dr. Stroud can order a 30 day heart monitor. We will start Aspirin and plavix for 21 days. Then you will be on aspirin moving forward. We will also have you on atorvastatin 80 mg once daily. Risk Factors for Stroke: You can reduce your chances of stroke by working with your medical provider to adopt a healthy lifestyle. Some specific ways to lower your chance of stroke are: * If you are a smoker, now is the time to stop smoking cigarettes * If you are diabetic, improve the control of your blood sugars * Avoid excessive amounts of alcohol * Control high blood pressure * Lose weight if you are overweight * Be sure to lead an active lifestyle * Eat a healthy diet low in salt, cholesterol and fat You should know about other risk factors for stroke that you are unable to control. These include: * Age 55 years or older * Male gender * Certain racial groups: , or / * Family History of Stroke, Mini stroke or Heart Attack * Sickle Cell Disease Follow Up: It is important for you to keep your follow up appointments with your medical provider. Who to Call and When: Medical Emergencies: Call 911 immediately if you experience any of the following warning signs and symptoms of Stroke: * Sudden numbness or weakness of the face, arm or leg, especially on one side of the body * Sudden confusion, trouble speaking or understanding * Sudden trouble seeing in one or both eyes * Sudden trouble walking, dizziness, loss of balance or coordination * Sudden severe headache with no cause Do not delay calling 911 if you experience any warning signs or symptoms of a stroke. Delay in seeking medical attention may affect what treatments can be given to you. . Pending Studies at Discharge: No Stand-Alone Forms: My [employer], Smoking Cessation, Medications to Prevent Stroke Medications and DC Order Prescriptions: New atorvastatin 80 mg tablet 80 mg PO DAILY Qty: 30 0RF aspirin 81 mg capsule 81 mg PO DAILY Qty: 21 0RF nicotine 21 mg/24 hr patch 24 hour 1 patch transdermal DAILY Qty: 28 0RF clopidogrel [Plavix] 75 mg tablet 75 mg PO DAILY Qty: 30 0RF No Action losartan 25 mg Tablet 25 mg PO DAILY tiotropium bromide [Spiriva with HandiHaler] 18 mcg Capsule, W/Inhalation Device 1 cap INHALATION DAILY Rx Instructions: puncture 1 cap using device; one dose = 2 inhalations Admission Data Admit Date/Time: 03/29/24 09:42 Attending Provider: Eric Desai Admit Provider: Leatha Roa Primary Care Provider: Aretha Shaikh Other Providers: Leatha Roa Other Interventions: Discharge Summary Assessment (RN) Last Done: 03/30/24 11:27 Hospital Stay Data Consultations 03/29/24 09:11 ED Decision to Admit Stat Diagnostic Imagining Performed 03/29/24 08:16 CT angio head w con Stat CT angio neck with con Stat CT head/brain wo con Stat 03/29/24 10:44 MRI Brain [MR brain wo con] Stat Pending Results Patient Have Any Pending Studies at Discharge: No Discharge Instructions Given to Patient (Per Discharging Provider) WIll need to set up with Dr. Aguilar for followup. Dr. Stroud can order a 30 day heart monitor. We will start Aspirin and plavix for 21 days. Then you will be on aspirin moving forward. We will also have you on atorvastatin 80 mg once daily. Risk Factors for Stroke: You can reduce your chances of stroke by working with your medical provider to adopt a healthy lifestyle. Some specific ways to lower your chance of stroke are: * If you are a smoker, now is the time to stop smoking cigarettes * If you are diabetic, improve the control of your blood sugars * Avoid excessive amounts of alcohol * Control high blood pressure * Lose weight if you are overweight * Be sure to lead an active lifestyle * Eat a healthy diet low in salt, cholesterol and fat You should know about other risk factors for stroke that you are unable to control. These include: * Age 55 years or older * Male gender * Certain racial groups: , or / * Family History of Stroke, Mini stroke or Heart Attack * Sickle Cell Disease Follow Up: It is important for you to keep your follow up appointments with your medical provider. Who to Call and When: Medical Emergencies: Call 911 immediately if you experience any of the follow ing warning signs and symptoms of Stroke: * Sudden numbness or weakness of the face, arm or leg, especially on one side of the body * Sudden confusion, trouble speaking or understanding * Sudden trouble seeing in one or both eyes * Sudden trouble walking, dizziness, loss of balance or coordination * Sudden severe headache with no cause Do not delay calling 911 if you experience any warning signs or symptoms of a stroke. Delay in seeking medical attention may affect what treatments can be given to you. . Total Time Total Time Spent Total Time Spent (In Minutes): 32 Coding Level of Care Code 28230 INP/OBS DISCH >30 MIN Diagnoses Right sided weakness R53.1 Tobacco abuse Z72.0 COPD (chronic obstructive pulmonary disease) J44.9 HTN (hypertension), benign I10
--- NOTE | 2024-04-01 14:19 | Pharmacy Report ---
Pharmacist Stroke Counseling - Date of Service April 01, 2024 - Scope: Pharmacy has been consulted to provide medication discharge counseling for this patient admitted with [ischemic stroke] [hemorrhagic stroke] [transient ischemic attack] as per the Pharmacist Discharge Counseling for Stroke Patients Pro tocol. - Medications on Discharge: New Rx's Medication Instructions Recorded aspirin 81 mg capsule 81 mg PO DAILY #21 caps 03/30/24 atorvastatin 80 mg tablet 80 mg PO DAILY #30 tabs 03/30/24 clopidogrel 75 mg tablet (Plavix) 75 mg PO DAILY #30 tabs 03/30/24 nicotine 21 mg/24 hr daily 1 patch transdermal DAILY #28 ea 03/30/24 transdermal patch - Action: The above medications, specifically ones for stroke treatment/prophylaxis, have been reviewed in detail with the patient and/or patient direct sales representative(s) prior to discharge. This includes indication, common adverse reactions, drug interactions, and medication administration. Medication counseling has been employed using the teach-back method to ensure understanding. - Outcome: The patient and/or patient direct sales representative(s) have demonstrated understanding of the medications. Additional comments: Was able to talk with patient today to review medications on discharge. Patient reports picking up all new prescriptions. Denies any issues. Did have an appt today with PCP and they added on losartan 25 mg once daily and spiriva inhaler. No questions/concerns from patient at this time. He demonstrated understanding of medications. Thank you for allowing pharmacy to be involved in the care of this patient. Please call [phone] with any additional questions
--- OUTSIDE RECORDS SUMMARY | 2024-04-24 10:37 | External Medical Summary | Summary of Care ---
Author Name Unknown Organization [facility] Address [address] [place] [address] Phone [phone] Care Team Providers Care Liner Machine Operator Helper Name Role Phone Unavailable Primary Care Provider Unavailabl e Encounter Details Date Type Department Care Team ([facility] st Contact Info) Description 04/21/2024 Population Health External Data Unspecified Department Allergies Active Allergy Reactions Criticality Noted Date Comments Lisinopril 04/01/2024 dizzy V[place]le[place] Extract Hives 10/12/2014 documented as of this encounter (statuses as of 04/21/2024) Medications ASPIRIN EC 81 MG PO TBECIndications :Chest pain 1 TABLET DAILY 30 Tab 11 2 Active Clopidogrel Bisulfate 75 MG Oral Tablet (pLAVix) Take 1 Tablet by mouth in the morning. 4 Active Atorvastatin Calcium 80 MG Oral Tablet (Lipitor) Take 1 Tablet by mouth in the morning. 4 Active Losartan Potassium 25 MG Oral Tablet (Cozaar) Take 1 Tablet by mouth in the morning. 4 Active Spiriva HandiHaler 18 MCG Inhalation CapsuleIndicati ons:COPD, mild (HCC) INHALE THE CONTENTS OF 1 CAPSULE ONCE A DAY. FOR INHALATION ONLY, DO NOT SWALLOW. 30 Capsule 5 4 Active documented as of this encounter (statuses as of 04/21/2024) Active Problems Problem Noted Date Diagnosed Date Hx of arterial ischemic stroke 04/01/2024 Sinus tachycardia 12/31/2012 HTN, goal below 140/90 09/13/2011 Tobacco use disorder 09/13/2011 Allergic rhinitis 06/13/2011 Eczema 03/14/2011 Mitral valve anterior leaflet prolapse COPD, mild Anxiety documented as of this encounter (statuses as of 04/21/2024) Resolved Problems Problem Noted Date Diagnosed Date Resolved Date Shortness of breath 03/20/2012 10/13/19 15 Chest pain 03/20/2012 10/12/2014 HTN, goal below 130/80 09/12 Undiagnosed cardiac murmurs 02/14/2011 documented as of this encounter (statuses as of 04/21/2024) Immunizations Name Administration Dates Next Due Pneumococcal Polysaccharide PPV23 (Pneumovax) 03/14/2012,06/13/2011(Deferred: Patient Refused) Seasonal Influenza Vac., MDV , IM, 0.5 mL (Fluzone) 01/26/2014,12/31/2012,03/14/2012,02/14 Seasonal Influenza, Quadrivalent, ID 03/30/2024 Seasonal Influenza, Quadriva lent, No Preserve, IM [...] as of this encounter Plan of Treatment Upcoming Encounters Date Type Department Care Team (Late st Contact Info) Description 04/29/2024 1:00 PM EST Office Visit Family Medicine [address] [place] [phone] Yesenia Dailey MD [address] [place] [address] [place] [phone] Health Maintenance Due Date Last Done Comments HIV Screening 1980 Albumin/Creatinine Ratio 07/18/1983 Alpha-1 Antitrypsin 07/18/1983 Hepatitis C Screening 07/18/1983 Hepatitis B Vaccine (1 of 3 - 19+ 3-dose series) 1984 Cologuard 2010 Colonoscopy 2010 Colorectal Cancer Screening 2010 Fecal Occult Blood Test 2010 Sigmoidoscopy 2010 Pneumococcal Vaccine: 50+ Years (2 of 2 - PCV) 03/14/2013 03/14/2012 Depression Screening 01/26/2015 01/26/2014 Zoster Vaccines (1 of 2) 07/18/2015 GFR 04/19/2016 04/19/2015, 01/01, 10/22/2012, Additional history exists Lipid Panel 01/26/2019 01/26/2014, 10/01, 02/14/2011 DTap/Tdap Vaccines (2 - Td or Tdap) 08/31/2020 08/31/2010 COVID-19 Vaccine ( - 2023- season) 2023 DISCUSS TOBACCO CESSATION (REFER TO SMARTSET #[id number]) 04/01/2025 04/01/2024 O2 ASSESSMENT COMPLETED IN PAST YEAR FOR COPD 04/01/2025 04/01/2024 Influenza Vaccine (FLU shot) Completed , 01/24/2016, 04/19/2015, Additional history exists HPV (Gardasil) Vaccine Aged Out No lo nger eligible based on patient's age to complete this topic MENINGOCOCCAL (MENACTRA/MENVEO) Aged Out No longer eligible based on patient's age to complete this topic documented as of this encounter Medical Devices Not on filedocumented as of this encounter
--- OUTSIDE RECORDS SUMMARY | 2024-04-24 10:37 | External Medical Summary | Summary of Care ---
Author Name Unknown Organization [facility] Address [address] [facility] [place] [address] Phone [phone] Care Team Providers Care Stock Clerk Name Role Phone Unavailable Primary Care Provider Unavailabl e Reason for Visit * Reason Onset Date Comments Home Health 04/21/2024 Encounter Details Date Type Department Care Team (Late st Contact Info) Description 04/21/[address] [place] [phone] Yesenia Dailey MD [address] [place] [address] [place] [phone] Home Health Allergies Active Allergy Reactions Criticality Noted Date Comments Lisinopril 04/01/2024 dizzy [place] Extract Hives 10/12/2014 documented as of this [...] Resolved Date Shortness of breath 03/20/2012 10/13/19 Chest pain 03/20/2012 10/12/2014 HTN, goal below [...] on file documented as of this encounter Miscellaneous Notes * Telephone Encounter - Monisha Li LPN - 04/21/2024 2:37 PM EST Tanya guideman from [facility] Nurse is calling. States that on 04/03 it was documented by one of their nurses that the pt has a hx of CVA with right hemiparesis. Asks that this is confirmed. Made Tanya aware that this was documented in the pt's 04/[address] Nieves. * Telephone Encounter - Esmer Moralez OSA - 04/21/2024 2:37 PM EST Tanya [facility] Nurses [phone] transferred to Nurse Bearden. * Telephone Encounter - Steph Thrasher OSA - 04/21/2024 1:26 PM EST LUISA Sanches, calling from [facility] Nurses would like a return call in regards to this patient. Please return call to [phone] documented in this encounter Plan of Treatment Upcoming Encounters Date Type Department Care Team (Late st Contact Info) Description 04/29/2024 1:00 PM EST Office Visit Family Medicine [address] [phone] Yesenia Dailey MD [address] [place] [address] [place] [phone] Health Maintenance Due Date [...] Td or Tdap) 08/31/2020 08/31/2010 COVID-19 Vaccine (1 - season) 2023 DISCUSS TOBACCO CESSATION (REFER TO SMARTSET #[id number]) 04/01/2025 04/01/2024 O2 ASSESSMENT COMPLETED IN PAST [...]
--- OUTSIDE RECORDS SUMMARY | 2024-04-24 10:37 | External Medical Summary | Summary of Care ---
Author Name Unknown Organization [facility] Address [address] [facility] [place] [address] Phone [phone] Care Team Providers Care Music Orchestrator Name Role Phone Unavailable Primary Care Provider Unavailabl e Reason for Visit * Reason Onset Date Comments Home Health 04/21/2024 Encounter Details Date Type Department Care Team (Late st Contact Info) Description 04/21/[address] [place] [phone] Yesenia Dailey MD [address] [place] [address] [place] [phone] Home Health Allergies Active Allergy Reactions Criticality Noted Date Comments Lisinopril 04/01/2024 dizzy [place] Extract Hives 10/12/2014 documented as of this [...] ONLY, DO NOT SWALLOW. 30 Capsule 5 Active documented as of this encounter (statuses [...] Encounter - Monisha Li LPN - 04/21/2024 3:07 PM EST Called LUISA Sanches from [facility] back. Report/Concerns of: BP Symptoms: none Vitals: T 98.4 P 107 at rest RR 18 BP 164/104 SP O2 98% RA Narrative: Reports that the pt's BP has been trending up. Pt has only taking half a tab of Losartan Potassium. Pt reported to her that when he takes the whole tablet he feels terrible and becomes lightheaded, unsteady and nauseas. Today pt's BP was 164/104 and denied symptoms related to hypertension. Next office visit: 04/29/2024 Please advise. Call back Verónica with any advice or orders at [phone] Please fax new orders to [facility] [phone] * Telephone Encounter - Monisha Li LPN - 04/21/2024 2:37 PM EST Tanya agriculture mechanic from [facility] Nurse is calling. States that on 04/03 it was documented by one of their nurses that the pt has a hx of CVA with right hemiparesis. Asks that this is confirmed. Made Tanya aware that this was documented in the pt's 04/[address] Nieves. * Telephone Encounter - Esmer Moralez OSA - 04/21/2024 2:37 PM EST Tanya [facility] Nurses [phone] transferred to Nurse Bearden. * Telephone Encounter - Steph Thrasher OSA - 04/21/2024 1:26 PM EST Verónica OT, calling from [facility] Nurses would like a return call in regards to this patient. Please return call to [phone] documented in this encounter Plan of Treatment Upcoming Encounters Date Type Department Care Team (Late st Contact Info) Description 04/29/2024 1:00 PM EST Office Visit Family Medicine [address] [place] [phone] Yesenia Dailey MD [address] [place] [address] [place] [phone] Health Maintenance Due Date [...] or Tdap) 08/31/2020 08/31/2010 COVID-19 Vaccine ( season) 2023 DISCUSS TOBACCO CESSATION (REFER TO [...]
--- OUTSIDE RECORDS SUMMARY | 2024-04-24 10:37 | External Medical Summary | Summary of Care ---
Author Name Unknown Organization [facility] Address [address] [place] [address] Phone [phone] Care Team Providers Care Sheet Heater Helper Name Role Phone Unavailable Primary Care Provider Unavailabl e Reason for Visit * Reason Onset Date Comments Advice 04/01/2024 cane Encounter Details Date Type Department Care Team ([facility] st Contact Info) Description 04/01/2024 Telephone [facility] Medicine [address] [phone] Services, Scheduling [address] [place] [address] Advice (cane) Allergies Active Allergy Reactions Criticality Noted Date Comments Lisinopril 04/01/2024 dizzy [place] Extract Hives 10/12/2014 documented as of this encounter (statuses as of 04/08/2024) Medications ASPIRIN EC 81 MG PO TBECIndications [...] as of this encounter (statuses as of 04/08/2024) Active Problems Problem Noted Date Diagnosed Date Hx of arterial ischemic stroke 04/01/2024 Sinus tachycardia 12/31/2012 HTN, goal below 140/90 09/13/2011 Tobacco use disorder 09/13/2011 Allergic rhinitis 06/13/2011 Eczema 03/14/2011 Mitral valve anterior leaflet prolapse COPD, mild Anxiety documented as of this encounter (statuses as of 04/08/2024) Resolved Problems Problem Noted Date Diagnosed Date Resolved Date Shortness of breath 03/20/2012 10/13/19 15 Chest pain 03/20/2012 10/12/2014 HTN, goal below 130/80 09/12 Undiagnosed cardiac murmurs 02/14/2011 documented as of this encounter (statuses as of 04/08/2024) Immunizations Name Administration Dates Next Due Pneumococcal [...] encounter Miscellaneous Notes * Telephone Encounter - Betty Toledo CMA - 04/08/2024 2:40 PM EST Order [id number] for Darryl [place] (1965) is being fulfilled by [facility] [employer]. If you need assistance with this order, please call . * Telephone Encounter - Betty Toledo CMA - 04/07/2024 2:25 PM EST [facility] order to [facility] * Telephone Encounter - Yesenia Dailey MD - 04/07/2024 1:27 PM EST Signed * Telephone Encounter - Betty Toledo CMA - 04/07/2024 1:22 PM EST Pt needs cane * Telephone Encounter - Pa Burnett LPN - 04/07/2024 12:37 PM EST Jeanmarie, Calling from: [facility] will fax Order for Cane to [facility] 04/07/24. FYI * Telephone Encounter - Triny Maya OSA - 04/01/2024 10:23 AM EST is calling regarding the script for a walking cane for pt. In order for the insurance to coverit, the script needs to go to [facility]. Please fax to [phone]. documented in this encounter Plan of Treatment Upcoming Encounters Date Type Department Care Team (Late st Contact Info) Description 04/29/2024 1:00 PM EST Office Visit Family Medicine [address] [phone] Yesenia Dailey MD [address] [place] [address] [place] [phone] Health Maintenance Due Date [...] 08/31/2010 COVID-19 Vaccine ( - season) 2023 DISCUSS TOBACCO CESSATION (REFER TO SMARTSET #[id number]) 04/01/2025 04/01/2024 O2 ASSESSMENT COMPLETED IN PAST [...] Not on filedocumented as of this encounter Visit Diagnoses Diagnosis Hx of arterial ischemic stroke- Primary Transient ischemic attack (TIA), and cerebral infarction without residual deficits documented in this encounter
--- OUTSIDE RECORDS SUMMARY | 2024-04-24 10:37 | External Medical Summary | Summary of Care ---
Author Name Unknown Organization [facility] Address [address] [facility] [place] [address] Phone [phone] Care Team Providers Care Maint Mechanic Name Role Phone Unavailable Primary Care Provider Unavailabl e Reason for Visit * Reason Onset Date Comments Home Health 04/21/2024 Encounter Details Date Type Department Care Team (Late st Contact Info) Description 04/21/[address] [place] [phone] Yesenia Dailey MD [address] [place] [address] [place] [phone] Home Health Allergies Active Allergy Reactions Criticality Noted Date Comments Lisinopril 04/01/2024 dizzy [place] Extract Hives 10/12/2014 documented as of this [...] LPN - 04/21/2024 2:37 PM EST Tanya certified medical records coder from [facility] Nurse is calling. States that on 04/03 it was documented by one of their nurses that the pt has a hx of CVA with right hemiparesis. Asks that this is confirmed. Made Tanya aware that this was documented in the pt's 04/[address] Nieves. * Telephone Encounter - Esmer Moralez OSA - 04/21/2024 2:37 PM EST Tanya [facility] Nurses [phone] transferred to Nurse Bearden. * Telephone Encounter - Steph Thrasher OSA - 04/21/2024 1:26 PM EST LUISA aSnches, calling from [facility] Nurses would like a return call in regards to this patient. Please return call to [phone] documented in this encounter Plan of Treatment Upcoming Encounters Date Type Department Care Team (Late st Contact Info) Description 04/29/2024 1:00 PM EST Office Visit Family Medicine [address] [phone] Yesenia Dailey MD [address] [place] [address] [place] [phone] Health Maintenance Due Date [...]
--- OUTSIDE RECORDS SUMMARY | 2024-04-24 10:38 | External Medical Summary | Summary of Care ---
Author Name Unknown Organization [facility] Address [address] [place] [address] Phone [phone] Care Team Providers Care Pomology Teacher Name Role Phone Unavailable Primary Care Provider Unavailabl e Reason for Visit * Reason Onset Date Comments MyCode Consent 04/01/2024 Encounter Details Date Type Department Care Team ([facility] st Contact Info) Description 04/01/2024 Orders Only Outcomes Research Department [address] [place] [address] Marcella Newberry CHRA MyCode Research Other*[id number]* Allergies Active Allergy Reactions Criticality Noted Date Comments [place] Extract Hives 10/12/2014 documented as of this encounter (statuses as of 04/01/2024) Medications ASPIRIN EC 81 MG PO TBECIndications: Chest pain 1 TABLET DAILY 30 Tab 11 03/20/20 12 Active OMEPRAZOLE 20 MG PO CPDRIndications: Esophageal reflux One pill by mouth once a day 1 hour before the first meal of the day 30 Cap 5 01/27/20 14 024 Discontinued benzonatate (TESSALON PERLES) 100 MG CapsuleIndicatio ns:COPD exacerbation (HCC) Swallow 1 or 2 pills three times a day as needed for cough. Do not cut, crush, or chew. 50 Cap 1 04/06/19 16 024 Discontinued loratadine (CLARITIN) 10 MG TabletIndication s:Allergic rhinitis, unspecified allergic rhinitis type Take 1 Tab by mouth daily. 30 Tab 5 04/19/19 16 024 Discontinued levalbuterol (XOPENEX HFA) 45 MCG/ACT inhaler Inhale 2 Puffs by mouth every 4 hours as needed for Wheezing or Shortness of Breath. 1 Inhaler 12 01/10/20 16 024 Discontinued tiotropium bromide (SPIRIVA HANDIHALER) 18 MCG inhalation CapsuleIndicatio ns:COPD, mild (HCC) INHALE THE CONTENTS OF 1 CAPSULE ONCE A DAY. FOR INHALATION ONLY, DO NOT SWALLOW. 30 Cap 5 01/24/20 16 024 Discontinued losartan (COZAAR) 50 MG Tablet Take 1 Tab by mouth daily. 30 Tab 5 01/24/20 16 024 Discontinued citalopram (CELEXA) 10 MG TabletIndication s:Anxiety One pill by mouth once a day 30 Tab 5 01/24/20 16 024 Discontinued triamcinolone acetonide (ARISTOCORT) 0.1 % creamIndications :Eczema APPLY TO AFFECTED AREA TWICE A DAY 60 g 5 05/15/19 17 024 Discontinued documented as of this encounter (statuses as of 04/01/2024) Active Problems Problem Noted Date Diagnosed Date Sinus tachycardia 12/31/2012 HTN, goal below 140/90 09/13/2011 Tobacco use disorder 09/13/2011 Allergic rhinitis 06/13/2011 Eczema 03/14/2011 Mitral valve anterior leaflet prolapse COPD, mild Anxiety documented as of this encounter (statuses as of 04/01/2024) Resolved Problems Problem Noted Date Diagnosed Date Resolved Date Shortness of breath 03/20/2012 10/13/19 15 Chest pain 03/20/2012 10/12/2014 HTN, goal below 130/80 09/12 Undiagnosed cardiac murmurs 02/14/2011 documented as of this encounter (statuses as of 04/01/2024) Immunizations Name Administration Dates Next Due Pneumococcal [...] on file documented as of this encounter Progress Notes * Marcella Newberry CHRA - 04/01/2024 8:51 AM EST MyCode Consent Documentation Darryl Bernal provided consent/authorization to participate in the [employer]. documented in this encounter Plan of Treatment Scheduled Orders Name Type Priority Associated Diagnoses Orde r Schedule MYCODE INITIAL ADULT Lab Routine MyCode Research Other*[id number] Expected: 04/01/2024 (Approximate), Expires: 04/21/2025 Health Maintenance Due Date Last Done Comments [...] Tdap) 08/31/2020 08/31/2010 COVID-19 Vaccine (1 - 2024- season) 2023 Influenza Vaccine (FLU shot) (#1) 2023 01/24/2016, 04/19/2015, 01/26/2014, Additional history exists HPV (Gardasil) Vaccine Aged Out No lo nger eligible based on patient's age to complete this topic MENINGOCOCCAL (MENACTRA/MENVEO) Aged Out No longer eligible based on patient's age to complete this topic documented as of this encounter Medical Devices Not on filedocumented as of this encounter Visit Diagnoses Diagnosis MyCode Research Other*[id number]- Primary documented in this encounter
--- OUTSIDE RECORDS SUMMARY | 2024-04-24 10:38 | External Medical Summary | Summary of Care ---
Author Name Unknown Organization [facility] Address [address] [place] [address] Phone [phone] Care Team Providers Care Arcade Attendant Name Role Phone Unavailable Primary Care Provider Unavailabl e Reason for Visit * Reason Onset Date Comments Advice 04/01/2024 cane Encounter Details Date Type Department Care Team ([facility] st Contact Info) Description 04/01/2024 Telephone [facility] Medicine [address] [phone] Services, Scheduling [address] [place] [address] Advice (cane) Allergies Active Allergy Reactions Criticality Noted Date Comments Lisinopril 04/01/2024 dizzy [place] Extract Hives 10/12/2014 documented as of this encounter (statuses as of 04/07/2024) Medications ASPIRIN EC 81 MG PO TBECIndications [...] as of this encounter (statuses as of 04/07/2024) Active Problems Problem Noted Date Diagnosed Date Hx of arterial ischemic stroke 04/01/2024 Sinus tachycardia 12/31/2012 HTN, goal below 140/90 09/13/2011 Tobacco use disorder 09/13/2011 Allergic rhinitis 06/13/2011 Eczema 03/14/2011 Mitral valve anterior leaflet prolapse COPD, mild Anxiety documented as of this encounter (statuses as of 04/07/2024) Resolved Problems Problem Noted Date Diagnosed Date Resolved Date Shortness of breath 03/20/2012 10/13/19 15 Chest pain 03/20/2012 10/12/2014 HTN, goal below 130/80 09/12 Undiagnosed cardiac murmurs 02/14/2011 documented as of this encounter (statuses as of 04/07/2024) Immunizations Name Administration Dates Next Due Pneumococcal [...] encounter Miscellaneous Notes * Telephone Encounter - Yesenia Dailey MD - 04/07/2024 1:27 PM EST Signed * Telephone Encounter - Betty Toledo CMA - 04/07/2024 1:22 PM EST Pt needs cane * Telephone Encounter - Pa Burnett LPN - 04/07/2024 12:37 PM EST BaljeetRN, Calling from: [facility]. FYI * Telephone Encounter - Triny Maya OSA - 04/01/2024 10:23 AM EST is calling regarding the script for a walking cane for pt. In order for the insurance to coverit, [facility] Please fax to [phone]. documented in this encounter Plan of Treatment Upcoming Encounters Date Type Department Care Team (Late st Contact Info) Description 04/29/2024 1:00 PM EST Office Visit Family Medicine [address] [place] [address] Yesenia Dailey MD [address] [place] [address] [place] [phone] Health Maintenance Due Date [...]
--- OUTSIDE RECORDS SUMMARY | 2024-04-24 10:38 | External Medical Summary | Summary of Care ---
Author Name Unknown Organization [facility] Address [address] [place] [address] Phone [phone] Care Team Providers Care Gate Keeper Name Role Phone Unavailable Primary Care Provider Unavailabl e Reason for Visit * Reason Onset Date Comments Advice 04/01/2024 cane Encounter Details Date Type Department Care Team ([facility] st Contact Info) Description 04/01/2024 Telephone [facility] Medicine [address] [phone] Services, Scheduling [address] [place] [address] Advice (cane) Allergies Active Allergy Reactions Criticality Noted Date Comments Lisinopril 04/01/2024 dizzy [place] Extract Hives 10/12/2014 documented as of this [...] Miscellaneous Notes * Telephone Encounter - Yesenia aDiley MD - 04/07/2024 1:27 PM EST Signed * Telephone Encounter - Betty Toledo CMA - 04/07/2024 1:22 PM EST Pt needs cane * Telephone Encounter - Pa Burnett LPN - 04/07/2024 12:37 PM EST BaljeetRN, Calling from: [facility]. FYI * Telephone Encounter - Triny Maya OSA - 04/01/2024 10:23 AM EST is calling regarding the script for a walking cane for pt. In order for the insurance to coverit, the [facility]. Please fax to [phone]. documented in this encounter Plan of Treatment Upcoming Encounters Date Type Department Care Team (Late st Contact Info) Description 04/29/2024 1:00 PM EST Office Visit Family Medicine [address] [place] [address] Yesenia Dailey MD [address] [place] [address] [place] [phone] Health Maintenance Due Date [...]
--- OUTSIDE RECORDS SUMMARY | 2024-04-24 10:38 | External Medical Summary | Summary of Care ---
Author Name Unknown Organization [facility] Address [address] [facility] [place] [address] Phone [phone] Care Team Providers Care Client Service Consultant Name Role Phone Unavailable Primary Care Provider Unavailabl e Reason for Visit * Reason Onset Date Comments Medication Pre-auth 04/01/2024 TIOTROPIUM 1 8 MCG CAP-INHALER Encounter Details Date Type Department Care Team (Late st Contact Info) Description 04/01/[address] [phone] Yesenia Dailey MD [address] [place] [address] [place] [phone] Medication Pre-auth (TIOTROPIUM 18 MCG CAP... Allergies Active Allergy Reactions Criticality Noted Date Comments Lisinopril 04/01/2024 dizzy [place] Extract Hives 10/12/2014 documented as of this encounter (statuses as of 04/01/2024) Medications ASPIRIN EC 81 MG PO TBECIndications [...] NOT SWALLOW. 30 Capsule 5 4 Active Tiotropium [place] Monohydrate 18 MCG Inhalation Capsule (Spiriva HandiHaler)Yeny cations:COPD, mild (HCC) INHALE THE CONTENTS OF 1 CAPSULE ONCE A DAY. FOR INHALATION ONLY, DO NOT SWALLOW. 30 Capsule 5 4 04/01/20 24 Discontin ued(Refil l) documented as of this encounter (statuses as [...] encounter Miscellaneous Notes * Telephone Encounter - Breanne Pretty RPh - 04/01/2024 9:42 AM EST Resent as brand. Thank you, Breanne Pretty, PharmD Clinical Pharmacist [facility] ([facility]) 04/01/24 9:42 AM [phone] * Telephone Encounter - Angelo Starks CPhT - 04/01/2024 9:34 AM EST Patients insurance would like to inform the office that TIOTROPIUM 18 MCG CAP- INHALER is not requiring review because Brand (Spiriva) is preferred on the [facility] for 2023 and 2024, no prior auth needed. Prescription can be sent to the pharmacy for processing as Brand Necessary, if it hasn't already been sent. Aborting Request.. Rx not released to pharmacy yet, please submit updated DANIELLE coded script Thank you, [place] Starks ([facility]) Form Coverer III [facility] ([facility]) 04/01/2024, 9:34 AM documented in this encounter Plan of Treatment Upcoming Encounters Date Type Department Care Team (Late st Contact Info) Description 04/29/2024 1:00 PM EST Office Visit Family Medicine [address] [place] [phone] Yesenia Dailey MD [address] [place] [address] [place] [phone] Health Maintenance Due Date [...] as of this encounter Visit Diagnoses Diagnosis COPD, mild (HCC) Chronic airway obstruction, not elsewhere classified documented in this encounter
--- OUTSIDE RECORDS SUMMARY | 2024-04-24 10:38 | External Medical Summary | Summary of Care ---
Author Name Unknown Organization [facility] Address [address] [facility] [place] [address] Phone [phone] Care Team Providers Care Fruit Loader Machine Operator Name Role Phone Unavailable Primary Care Provider Unavailabl e Reason for Visit * Reason Onset Date Comments Hospital Follow-Up Hospital Follow-Up 04/01/2024 Encounter Details Date Type Department Care Team (Late st Contact Info) Description 04/01/2024 9:00 AM EST Office Visit Family Medicine [address] [phone] Yesenia Dailey MD [address] [place] [address] [place] [phone] Hospital discharge follow-up*; Hx of arterial ischemic stroke; HTN, goal below 140/90; COPD, mild (HCC); Tobacco use disorder Allergies Active Allergy Reactions Criticality Noted Date Comments Lisinopril 04/01/2024 dizzy [place] Extract Hives 10/12/2014 documented as of this encounter (statuses as of 04/01/2024) Medications ASPIRIN EC 81 MG PO TBECIndications :Chest pain 1 TABLET DAILY 30 Tab 11 03/20/20 12 Active Clopidogrel Bisulfate 75 MG Oral Tablet (pLAVix) Take 1 Tablet by mouth in the morning. 03/31/20 24 Active Atorvastatin Calcium 80 MG Oral Tablet (Lipitor) Take 1 Tablet by mouth in the morning. 03/31/20 24 Active Losartan Potassium 25 MG Oral Tablet (Cozaar) Take 1 Tablet by mouth in the morning. 04/01/20 24 Active OMEPRAZOLE 20 MG PO CPDRIndications :Esophageal reflux One pill by mouth once a day 1 hour before the first meal of the day 30 Cap 5 01/27/20 14 024 Discontinued benzonatate (TESSALON PERLES) 100 MG CapsuleIndicati ons:COPD exacerbation (HCC) Swallow 1 or 2 pills three times a day as needed for cough. Do not cut, crush, or chew. 50 Cap 1 04/06/19 16 024 Discontinued loratadine (CLARITIN) 10 MG TabletIndicatio ns:Allergic rhinitis, unspecified allergic rhinitis type Take 1 Tab by mouth daily. 30 Tab 5 04/19/19 16 Discontinued levalbuterol (XOPENEX HFA) 45 MCG/ACT inhaler Inhale 2 Puffs by mouth every 4 hours as needed for Wheezing or Shortness of Breath. 1 Inhaler 12 01/10/20 16 Discontinued tiotropium bromide (SPIRIVA HANDIHALER) 18 MCG inhalation CapsuleIndicati ons:COPD, mild (HCC) INHALE THE CONTENTS OF 1 CAPSULE ONCE A DAY. FOR INHALATION ONLY, DO NOT SWALLOW. 30 Cap 5 01/24/20 16 024 Discontinued losartan (COZAAR) 50 MG Tablet Take 1 Tab by mouth daily. 30 Tab 5 01/24/20 16 024 Discontinued citalopram (CELEXA) 10 MG TabletIndicatio ns:Anxiety One pill by mouth once a day 30 Tab 5 01/24/20 16 024 Discontinued triamcinolone acetonide (ARISTOCORT) 0.1 % creamIndication s:Eczema APPLY TO AFFECTED AREA TWICE A DAY 60 g 5 05/15/19 17 024 Discontinued Losartan Potassium 25 MG Oral Tablet (Cozaar) Take 1 Tablet by mouth in the morning. 30 Tablet 5 04/01/20 24 024 Discontinued Tiotropium [place] Monohydrate 18 MCG Inhalation Capsule (Spiriva HandiHaler)Yeny cations:COPD, mild (HCC) INHALE THE CONTENTS OF 1 CAPSULE ONCE A DAY. FOR INHALATION ONLY, DO NOT SWALLOW. 30 Capsule 5 04/01/20 24 024 Discontinued(R efill) documented as of this encounter (statuses as [...] on file documented as of this encounter Last Filed Vital Signs Vital Sign Reading Time Taken Comments Blood Pressure 138/90 04/01/2024 8:54 AM EST Pulse 98 04/01/2024 8:54 AM EST Temperature 35.8 C (96.4 F) 04/01/2024 8:54 AM ES T Respiratory Rate - - Oxygen Saturation 96% 04/01/2024 8:54 AM EST Inhaled Oxygen Concentration - - Weight 67 kg (147 lb 9.6 oz) 04/01/2024 8:54 AM EST Height 177.8 cm (5' 10") 04/01/2024 8:54 AM EST Body Mass Index 21.18 04/01/2024 8:54 AM EST documented in this encounter Progress Notes * Yesenia Dailey MD - 04/01/2024 8:56 AM EST SUBJECTIVE: Darryl Bernal is a 58 year old male. Chief Complaint Patient presents with Hospital Follow-Up Hospital Follow-Up Recent Admission: Patient was recently admitted to [facility] on 03/29. The date of discharge was 03/30. Discharge report not available at the time of the appt. History from patient and . New pt, last seen > 5 years ago. Had a stroke on Sat, got up and whole R side was weak. Had urinary incontinence and speech issues too. Laid back down for a few hours. Called ambulance and went to the ED then. Had testing including MRI. Dx with stroke. Telehealth Stroke with [facility] then. Did get strength in R arm back with some time, R leg still a little weaker. Recommended rehab after the hospital, they declined and went home. HPI: Doing better each day per his . Using exercise bands and balls. Using a walker to get around. Home nursing, PT and OT to start 04/03. Is to have Neurology follow up, referred by the hospital.Had echo and carotids, they believe they were ok. Requesting a cane for ambulating at home. Currently on DAPT and statin only at this time. Hasn't smoked since Sunday. Got patches but not using. Goal is to get back to work. 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 Runs [employer] sometimes. Dx in the past with COPD. Was on lisinopril in the past, made him dizzy. Patient Active Problem List Diagnosis Eczema Mitral valve anterior leaflet prolapse Allergic rhinitis HTN, goal below 140/90 Tobacco use disorder COPD, mild (HCC) Sinus tachycardia Anxiety Current Outpatient Medications Medication Sig Dispense Refill ASPIRIN EC 81 MG PO TBEC 1 TABLET DAILY 30 Tab 11 Clopidogrel Bisulfate 75 MG Oral Tablet (pLAVix) Take 1 Tablet by mouth in the morning. Atorvastatin Calcium 80 MG Oral Tablet (Lipitor) Take 1 Tablet by mouth in the morning. No current facility-administered medications for this visit. Current and discharge medications have been reconciled. Review of patient's allergies indicates: Allergen Reactions [place] Extract Hives OBJECTIVE: BP 138/90 | Pulse 98 | Temp 96.4 F (35.8 C) (Infrared ) | Ht 5' 10" (1.778 m) | Wt 147 lb 9.6 oz (67 kg) | SpO2 96% | BMI 21.18 kg/m | BSA 1.82 m Review Of Systems: Skin: negative Eyes: negative Respiratory: cough Cardiovascular: pt denies:, palpitations, and chest pain Gastrointestinal: negative Musculoskeletal: muscular weakness, decreased ROM Neurologic: muscle weakness and numbness or tingling of feet Psychiatric: negative PHYSICAL EXAM: BP 138/90 | Pulse 98 | Temp 96.4 F (35.8 C) (Infrared ) | Ht 5' 10" (1.778 m) | Wt 147 lb 9.6 oz (67 kg) | SpO2 96% | BMI 21.18 kg/m | BSA 1.82 m General: alert and no distress Head: Normocephalic Eye Exam: PERRLA, extraocular movements intact, conjunctiva are pink and non- injected, sclera clear Oropharynx: no exudate, no erythema, lips, buccal mucosa, and tongue normal, and mucous membranes are moist Neck: supple, thyroid normal size, non-tender, without nodularity Heart: regular rate & rhythm, no murmur, and no gallops Lungs: lungs clear to auscultation Extremities: no joint deformities, effusion, or inflammation Neuro Exam: alert & oriented x 3 with fluent speech, positive findings: shuffling gait, muscular weakness R hip 4+/5, R shoulder abduction 4+/5, all others 5/5 strength, sensory deficit pins and needles sensation in R lower leg ASSESSMENT: Hospital discharge follow-up (Primary); Hx of arterial ischemic stroke - DISCH MED RECON CUR MED LIS Acute stroke recently. On DAPT, statin. Started ARB today. Discussed smoking cessation, he is motivated. Has home nursing coming in for therapy, will ensure he has a neuro appt scheduled (request discharge papers). Requesting cane for at home as his gait improves, ordered. - CANE ADJUST/FIXED QUAD/3 PRO HTN, goal below 140/90 Start back on losartan for BP and after stroke COPD, mild (HCC) - Tiotropium [place] Monohydrate 18 MCG Inhalation Capsule (Spiriva HandiHaler); INHALE THE CONTENTS OF 1 CAPSULE ONCE A DAY. FOR INHALATION ONLY, DO NOT SWALLOW. Has been off all his meds and inhalers. [place] that the spiriva did help, will restart. Tobacco use disorder Has been without cigarettes for 4 days, encouraged to continue. Has patches at home to use as needed. PLAN: Follow up in 1 month(s). I spent a total of 40-54 minutes (exact time 42 mins) minutes on the date of service in preparation, delivery, and documentation of the care provided to Darryl Bernal excluding any time spent in performance of separately billed services. Yesenia Muñoz MD documented in this encounter Nursing Notes * Betty Toledo CMA - 04/01/2024 9:01 AM EST Here for hospital f/u, pt reports was in after having stroke on sunday morning. Pt reports doing well since d/c, states speech and movement to affected coming along better then expected. PT order, Home health Order and eval for Bp medication documented in this encounter Plan of Treatment Upcoming Encounters Date Type Department Care Team (Late st Contact Info) Description 04/29/2024 1:00 PM EST Office Visit Family Medicine [address] [place] [phone] Yesenia Dailey MD [address] [place] [address] [place] [phone] Health Maintenance Due Date [...] as of this encounter Visit Diagnoses Diagnosis Hospital discharge follow-up- Primary Other follow-up examination Hx of arterial ischemic stroke Transient ischemic attack (TIA), and cerebral infarction without residual deficits HTN, goal below 140/90 Unspecified essential hypertension COPD, mild (HCC) Chronic airway obstruction, not elsewhere classified Tobacco use disorder documented in this encounter
--- OUTSIDE RECORDS SUMMARY | 2024-04-24 10:38 | External Medical Summary | Summary of Care ---
Author Name Unknown Organization [facility] Address [address] [place] [address] Phone [phone] Care Team Providers Care Compress Engineer Name Role Phone Unavailable Primary Care Provider Unavailabl e Reason for Visit * Reason Onset Date Comments Advice 04/01/2024 cane Encounter Details Date Type Department Care Team ([facility] st Contact Info) Description 04/01/2024 Telephone [facility] Medicine [address] [phone] Services, Scheduling [address] [place] [address] Advice (cane) Allergies Active Allergy Reactions Criticality Noted Date Comments Lisinopril 04/01/2024 dizzy [place] Extract Hives 10/12/2014 documented as of this [...] 04/07/2024 2:25 PM EST Sent order to [facility] * Telephone Encounter - Yesenia Dailey MD - 04/07/2024 1:27 PM EST Signed * Telephone Encounter - Betty Toledo CMA - 04/07/2024 1:22 PM EST Pt needs cane * Telephone Encounter - Pa Burnett LPN - 04/07/2024 12:37 PM EST Jeanmarie, Calling from: [facility] will fax Order for Cane to [facility] 04/07/24. FYI * Telephone Encounter - Triny Maya OSA - 04/01/2024 10:23 AM EST is calling regarding the script for a walking cane for pt. In order for the insurance to coverit, the script needs to go to [facility] first. Please fax to [phone]. documented in this encounter Plan of Treatment Upcoming Encounters Date Type Department Care Team (Late st Contact Info) Description 04/29/2024 1:00 PM EST Office Visit Family Medicine [address] [place] [address] Yesenia Dailey MD [address] [place] [address] [place] [phone] Health Maintenance Due Date [...]
== END 2024-03-30 12:05 | disposition home health service (06) | DRG 65 ==
LOC: EDINP 08:21 → ED 08:21 → OBSVTOIN 09:42 → SUATTDRO 09:42 → 2N 12:49